=== PATIENT | female | born 1975 | race Caucasian/White ===

== ENCOUNTER 2020-04-09 12:19 | Emergency (ER) | payer OTHER ==
[2020-04-09] MEDS ORDERED: DIPHENHYDRAMINE 50 MG/ML VIAL ONE (12:57)
[2020-04-09] MEDS ORDERED: METHYLPREDNISOLONE 125 MG INJ ONE (12:57)
[2020-04-09] MEDS ORDERED: ONDANSETRON 4 MG/2 ML VIAL ONE (12:58)
[2020-04-09] MEDS ORDERED: MORPHINE 4 MG/ML SYR ONE ×2 (12:58→14:30)
[2020-04-09] MEDS ORDERED: NA CHLORIDE 0.9% 1,000 ML ONE ×2 (12:58→12:59)
--- OUTSIDE RECORDS SUMMARY | 2020-04-09 13:06 | XMS REPORT | Clinical Summary ---
:1975 Author Organization [facility] Address [address] [place] [id number] Care Team Providers Name Role Phone Asked, No Pcp Primary Care Provider Unavailable Allergies Active Allergy Reactions Severity Noted Date Comments Adalimumab 11/22/2017 Infliximab 11/22/2017 Ketorolac 11/22/2017 Medications Medication Sig Dispensed Refills Start Date End Date Status UNABLE TO FIND Med Name: callie Green 0 Active daily Active Problems Not on file Social History Tobacco Use Types Packs/Day Years Used Date Never Smoker Smokeless Tobacco: Never Used Sex Assigned at Date Recorded Not on file Job Start Date Occupation Industry Not on file Not on file Not on file Travel History Travel Start Travel End No recent travel history available. 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
[2020-04-09 13:16] LABS: Basophils % 1.2 % (0-1.3); Lymphocytes % 23.7 % (15.3-44.8); MPV 6.9 fL (7.6-11.3); RBC Red Blood Cell Count 4.59 M/uL (3.86-4.86)
[2020-04-09 13:25] LABS: ALT/SGPT 24 U/L (12-78); AST/SGOT 21 U/L (15-37); Albumin 3.8 g/dL (3.4-5.0); Alkaline Phosphatase 87 U/L (45-117); BUN Blood Urea Nitrogen 12 mg/dL (7-18); Bicarbonate 31 mmol/L (21-32); Bilirubin Direct < 0.1 mg/dL (0-0.2); Bilirubin Total 0.2 mg/dL (0.2-1.0); Glucose Level 90 mg/dL (74-106); Lipase 144 U/L (73-393); Protein, Total 7.9 g/dL (6.4-8.2); Sodium Level 140 mmol/L (136-145)
--- NOTE | 2020-04-09 14:23 | EDPHYS ---
Physician Documentation [facility] Name: Marisela Benedict Age: 44 yrs Sex: Female : 1975 Arrival Date: 04/09/2020 Time: 12:20 Bed 14 Private MD: ED Physician Corey Velasco HPI: 04/09 17:18 This 44 yrs old Female presents to ER via Ambulatory with complaints of kdr Abdominal Pain. 17:18 The patient presents with abdominal pain in the lower abdomen. Onset: The kdr symptoms/episode began/occurred gradually, 3 day(s) ago. The symptoms do not radiate. Associated signs and symptoms: Pertinent positives: diarrhea, nausea, Pertinent negatives: palpitations, shortness of breath, vaginal discharge, vomiting, vomiting blood. The symptoms are described as achy, crampy, dull, vague, waxing/waning. Modifying factors: The symptoms are alleviated by nothing, the symptoms are aggravated by pressure, touching the area. Severity of pain: At its worst the pain was mild moderate in the emergency department the pain is unchanged. The patient has experienced similar episodes in the past, a few times. The patient has not recently seen a physician. 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 - Social history:: Smoking status: Patient denies any tobacco usage or history of. ROS: 17:18 Constitutional: Negative for fever, chills, and weight loss, Eyes: Negative for injury, kdr pain, redness, and discharge, ENT: Negative for injury, pain, and discharge, Neck: Negative for injury, pain, and swelling, Cardiovascular: Negative for chest pain, palpitations, and edema, Respiratory: Negative for shortness of breath, cough, wheezing, and pleuritic chest pain, Back: Negative for injury and pain, : Negative for injury, bleeding, discharge, and swelling, MS/Extremity: Negative for injury and deformity, Skin: Negative for injury, rash, and discoloration, Neuro: Negative for headache, weakness, numbness, tingling, and seizure activity. Psych: Negative for depression, anxiety, suicide ideation, homicidal ideation, and hallucinations, Allergy/Immunology: Negative for hives, rash, and allergies, Endocrine: Negative for neck swelling, polydipsia, polyuria, polyphagia, and marked weight changes, Hematologic/Lymphatic: Negative for swollen nodes, abnormal bleeding, and unusual bruising. 17:18 Abdomen/GI: Positive for abdominal pain, nausea, diarrhea, Negative for vomiting, constipation, abdominal distension, anorexia, dysphagia, hematemesis, black/tarry stool, rectal pain, rectal bleeding, bowel incontinence. Exam: 17:18 Constitutional: This is a well developed, well nourished patient who is awake, alert, kdr and in no acute distress. Head/Face: Normocephalic, atraumatic. Eyes: Pupils equal round and reactive to light, extra-ocular motions intact. Lids and lashes normal. Conjunctiva and sclera are non-icteric and not injected. Cornea within normal limits. Periorbital areas with no swelling, redness, or edema. Neck: Trachea midline, no thyromegaly or masses palpated, and no cervical lymphadenopathy. Supple, full range of motion without nuchal rigidity, or vertebral point tenderness. No Meningismus. Chest/axilla: Normal chest wall appearance and motion. Nontender with no deformity. No lesions are appreciated. Cardiovascular: Regular rate and rhythm with a normal S1 and S2. No gallops, murmurs, or rubs. Normal PMI, no JVD. No pulse deficits. Respiratory: Lungs have equal breath sounds bilaterally, clear to auscultation and percussion. No rales, rhonchi or wheezes noted. No increased work of breathing, no retractions or nasal flaring. Back: No spinal tenderness. No costovertebral tenderness. Full range of motion. Skin: Warm, dry with normal turgor. Normal color with no rashes, no lesions, and no evidence of cellulitis. MS/ Extremity: Pulses equal, no cyanosis. Neurovascular intact. Full, normal range of motion. Neuro: Awake and alert, GCS 15, oriented to person, place, time, and situation. Cranial nerves II-XII grossly intact. Motor strength 5/5 in all extremities. Sensory grossly intact. Cerebellar exam normal. Normal gait. Psych: Awake, alert, with orientation to person, place and time. Behavior, mood, and affect are within normal limits. 17:18 Abdomen/GI: Inspection: abdomen appears normal, Bowel sounds: active, diminished, in all quadrants, Palpation: soft, mild abdominal tenderness, in the suprapubic area, right lower quadrant and left lower quadrant. Vital Signs: 12:37 BP 129 / 83; Pulse 121; Resp 18 S; Temp 98.4(TE); Pulse Ox 100% on R/A; Weight 54.43 kg ca1 (R); Height 5 ft. 7 in. (170.18 cm) (R); Pain 9/10; 13:00 BP 111 / 91; Pulse 120; Resp 20; Pulse Ox 100% on R/A; jr10 14:00 BP 155 / 99; Pulse 102; Resp 20; Pulse Ox 100% ; jr10 14:30 BP 145 / 95; Pulse 101; Resp 20; Pulse Ox 100% ; jr10 12:37 Body Mass Index 18.79 (54.43 kg, 170.18 cm) ca1 MDM: 14:22 Patient medically screened. kdr 17:18 Data reviewed: vital signs, nurses notes, lab test result(s), radiologic studies. kdr Counseling: I had a detailed discussion with the patient and/or guardian regarding: the historical points, exam findings, and any diagnostic results supporting the discharge/admit diagnosis, lab results, radiology results, the need for outpatient follow up. 04/09 12:28 Order name: Basic Metabolic Panel; Complete Time: 14:17 kdr 04/09 12:28 Order name: CBC with Diff; Complete Time: 14:17 kdr 04/09 12:28 Order name: Hepatic Function; Complete Time: 14:17 [facility] 04/09 12:28 Order name: Lipase; Complete Time: 14:17 [facility] 04/09 12:28 Order name: IV Saline Lock; Complete Time: 13:05 [facility] 04/09 12:28 Order name: Labs collected and sent; Complete Time: 13:05 kdr Administered Medications: 13:00 Drug: NS 0.9% 1000 ml Route: IV; Rate: 1 bolus; Site: left forearm; ca1 14:00 Follow up: Response: No adverse reaction; IV Status: Completed infusion jr10 13:01 Drug: Zofran (Ondansetron) 4 mg Route: IVP; Site: left forearm; ca1 14:33 Follow up: Response: No adverse reaction jr10 13:03 Drug: morphine 4 mg {Note: rass 0.} Route: IVP; Site: left forearm; ca1 14:32 Follow up: Response: No adverse reaction; Pain is decreased jr10 13:05 Drug: SOLU-Medrol 125 mg Route: IVP; Site: left forearm; ca1 14:32 Follow up: Response: No adverse reaction jr10 13:07 Drug: Benadryl 50 mg Route: IVP; Site: left forearm; ca1 14:32 Follow up: Response: No adverse reaction jr10 14:00 Drug: NS 0.9% 1000 ml {Note: left posterior.} Route: IV; Rate: 125 ml/hr; Site: left jr10 forearm; 14:38 Drug: morphine 4 mg Route: IVP; Site: left forearm; jr10 15:08 Follow up: Response: No adverse reaction; Pain is decreased jr10 14:38 Drug: [place] (7.5 mg-325 mg) 1 tabs Route: PO; jr10 15:08 Follow up: Response: No adverse reaction; Pain is decreased jr10 Disposition: 04/09/20 14:22 Discharged to Home. Impression: Abdominal and pelvic pain. - Condition is Stable. - Discharge Instructions: Abdominal Pain, Adult, [id number]. - Prescriptions for Bentyl 20 mg Oral Tablet - take 1 tablet by ORAL route every 6 hours As needed; 20 tablet. Cipro 500 mg Oral Tablet - take 1 tablet by ORAL route every 12 hours for 7 days; 14 tablet. Flagyl 500 mg Oral Tablet - take 1 tablet by ORAL route every 12 hours for 7 days; 14 tablet. Tylenol- Codeine #3 300-30 mg Oral Tablet - take 2 tablet by ORAL route every 6 hours As needed; 30 tablet. Zofran 4 mg Oral Tablet - take 1 tablet by ORAL route every 4-6 hours As needed; 12 tablet. Pepcid 20 mg Oral Tablet - take 1 tablet by ORAL route every 12 hours for 5 days; 10 tablet. Medrol (Felice) 4 mg Oral Tablets, Dose Pack - take 1 tablet by ORAL route as directed - follow package instructions; 1 packet. - Medication Reconciliation Form, Thank You Letter, Antibiotic Education, Prescription Opioid Use form. - Follow up: Private Physician; When: 2 - 3 days; Reason: If symptoms return, Further diagnostic work-up, Recheck today's complaints, Continuance of care, Re-evaluation by your physician. - Problem is an acute exacerbation. - Symptoms have improved. Signatures: Dispatcher [employer] EDMS Corey Velasco MD MD kdr Acob, Cheryl, RN RN [facility] Emmy Brooke RN RN jr10 Corrections: (The following items were deleted from the chart) 15:10 14:22 04/09/2020 14:22 Discharged to Home. Impression: Abdominal and pelvic pain. jr10 Condition is Stable. Forms are Medication Reconciliation Form, Thank You Letter, Antibiotic Education, Prescription Opioid Use. Follow up: Private Physician; When: 2 - 3 days; Reason: If symptoms return, Further diagnostic work-up, Recheck today's complaints, Continuance of care, Re-evaluation by your physician. Problem is an acute exacerbation. Symptoms have improved. kdr
--- NOTE | 2020-04-09 14:23 | ER ---
Nurse's Notes [facility] Name: Marisela Benedict Age: 44 yrs Sex: Female : 1975 Arrival Date: 04/09/2020 Time: 12:20 Bed 14 Private MD: Diagnosis: Abdominal and pelvic pain Presentation: 04/09 12:37 Chief complaint: Patient states: Crohn's flare up. Taking Desipramine 20 mg 2 tabs ca1 nightly. This is a new medication they put me on since about 2 weeks ago. But since last night, I have been having severe abdominal pain, tenderness and feeling bloated at the lower abdomen. Reports N/diarrhea. No vomiting. Coronavirus screen: Patient denies a cough. Patient denies shortness of breath or difficulty breathing. Patient denies measured and/or subjective temperature greater than 100.4F prior to today's visit. Patient denies travel on a cruise ship or to a country the [facility] currently lists as an affected area. Patient denies contact with known and/or suspected case of COVID-19. Proceed with normal triage. Ebola Screen: Patient negative for fever greater than or equal to 101.5 degrees Fahrenheit, and additional compatible Ebola Virus Disease symptoms Patient denies exposure to infectious person. Patient denies travel to an Ebola-affected area in the 21 days before illness onset. No symptoms or risks identified at this time. Initial Sepsis Screen: Does the patient meet any 2 criteria? No. Patient's initial sepsis screen is negative. Does the patient have a suspected source of infection? No. Patient's initial sepsis screen is negative. Risk Assessment: Do you want to hurt yourself or someone else? Patient reports no desire to harm self or others. Onset of symptoms was April 09, 2020. 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 - Social history:: Smoking status: Patient denies any tobacco usage or history of. Screenin:00 Abuse screen: Denies threats or abuse. Denies injuries from another. Nutritional jr10 screening: No deficits noted. Tuberculosis screening: No symptoms or risk factors identified. Fall Risk No fall in past 12 months (0 pts). No secondary diagnosis (0 pts). IV access (20 points). Ambulatory Aid- None/Bed Rest/Nurse Assist (0 pts). Gait- Normal/Bed Rest/Wheelchair (0 pts) Mental Status- Oriented to own ability (0 pts). Assessment: 13:00 General: Appears in no apparent distress. Behavior is calm, cooperative, appropriate jr10 for age. Pain: Complains of pain in right lower quadrant and left lower quadrant Pain does not radiate. Pain currently is 9 out of 10 on a pain scale. Quality of pain is described as burning, aching, Pain began this morning Is continuous, Alleviated by medications, Also complains of nausea, diarrhea. Neuro: No deficits noted. Cardiovascular: No deficits noted. Respiratory: No deficits noted. GI: Abdomen is distended, mildly Bowel sounds hyperactive in right upper quadrant, left upper quadrant, right lower quadrant and left lower quadrant Abd is soft Abdomen is tender to palpation in right lower quadrant and left lower quadrant Reports lower abdominal pain, diarrhea, bloody stool, nausea, hx of Crohn's dx. : No deficits noted. EENT: No deficits noted. Derm: Skin is intact, Skin is dry, Skin is pink, warm \T\ dry. Rash noted that is itchy, papular. Musculoskeletal: No deficits noted. Vital Signs: 12:37 BP 129 / 83; Pulse 121; Resp 18 S; Temp 98.4(TE); Pulse Ox 100% on R/A; Weight 54.43 kg ca1 (R); Height 5 ft. 7 in. (170.18 cm) (R); Pain 9/10; 13:00 BP 111 / 91; Pulse 120; Resp 20; Pulse Ox 100% on R/A; jr10 14:00 BP 155 / 99; Pulse 102; Resp 20; Pulse Ox 100% ; jr10 14:30 BP 145 / 95; Pulse 101; Resp 20; Pulse Ox 100% ; jr10 12:37 Body Mass Index 18.79 (54.43 kg, 170.18 cm) ca1 ED Course: 12:20 Patient arrived in ED. ag5 12:27 Corey Velasco MD is Attending Physician. kdr 12:39 Triage completed. ca1 12:41 Arm band placed on right wrist. ca1 13:00 Bed in low position. Call light in reach. Side rails up X2. Pulse ox on. NIBP on. jr10 13:00 Inserted saline lock: 20 gauge in left forearm, using aseptic technique. Blood dh4 collected. 13:04 Emmy Brooke RN is Primary Nurse. jr10 14:43 No provider procedures requiring assistance completed. jr10 15:09 IV discontinued, No redness/swelling at site. Pressure dressing applied. jr10 Administered Medications: 13:00 Drug: NS 0.9% 1000 ml Route: IV; Rate: 1 bolus; Site: left forearm; ca1 14:00 Follow up: Response: No adverse reaction; IV Status: Completed infusion jr10 13:01 Drug: Zofran (Ondansetron) 4 mg Route: IVP; Site: left forearm; ca1 14:33 Follow up: Response: No adverse reaction jr10 13:03 Drug: morphine 4 mg {Note: rass 0.} Route: IVP; Site: left forearm; ca1 14:32 Follow up: Response: No adverse reaction; Pain is decreased jr10 13:05 Drug: SOLU-Medrol 125 mg Route: IVP; Site: left forearm; ca1 14:32 Follow up: Response: No adverse reaction jr10 13:07 Drug: Benadryl 50 mg Route: IVP; Site: left forearm; ca1 14:32 Follow up: Response: No adverse reaction jr10 14:00 Drug: NS 0.9% 1000 ml {Note: left posterior.} Route: IV; Rate: 125 ml/hr; Site: left jr10 forearm; 14:38 Drug: morphine 4 mg Route: IVP; Site: left forearm; jr10 15:08 Follow up: Response: No adverse reaction; Pain is decreased jr10 14:38 Drug: [place] (7.5 mg-325 mg) 1 tabs Route: PO; jr10 15:08 Follow up: Response: No adverse reaction; Pain is decreased jr10 Outcome: 14:22 Discharge ordered by . kdr 15:09 Discharged to home ambulatory. jr10 15:09 Condition: improved 15:09 Discharge instructions given to patient, Instructed on discharge instructions, follow up and referral plans. Demonstrated understanding of instructions, follow-up care, medications, Prescriptions given X x7 15:10 Patient left the ED. jr10 Signatures: Corey Velasco MD MD [facility] Aaliyah Rae RN RN ca1 Donita Heredia ag5 Devyn Starks 4 Emmy Brooke RN RN jr10
[2020-04-09] MEDS ORDERED: HYDROCODONE/APAP 7.5/325 MG TAB ONE (14:30)
[2020-04-09 15:16] VITALS: TEMP 98.4; O2SAT 100
[2020-04-09 15:20] VITALS: BP 145/95
== END 2020-04-09 15:10 | disposition home or self-care (01) ==
LOC: ER 12:19
DX: R10.30 Lower abdominal pain, unspecified (principal); K50.90 Crohn's disease, unspecified, without complications; Z88.5 Allergy status to narcotic agent; Z88.8 Allergy status to other drugs, medicaments and biological substances
CPT/HCPCS: 85025; 80048; 36415; 80076; 83690; J1200; J7030 ×2; J2930; J2405

== ENCOUNTER 2020-04-14 12:14 | Emergency (ER) | payer OTHER ==
[2020-04-14 13:35] LABS: Absolute Lymphocytes (CBC) 2.3 K/uL (0.7-4.9); Basophils % 1.1 % (0-1.3); Hematocrit 42.2 % (36.0-45.0); Lymphocytes % 20.9 % (15.3-44.8); MPV 6.6 fL (7.6-11.3); RBC Red Blood Cell Count 4.59 M/uL (3.86-4.86)
[2020-04-14] MEDS ORDERED: NA CHLORIDE 0.9% 1,000 ML ONE (13:50)
[2020-04-14 13:51] LABS: ALT/SGPT 39 U/L (12-78); AST/SGOT 26 U/L (15-37); Albumin 3.7 g/dL (3.4-5.0); Alkaline Phosphatase 89 U/L (45-117); BUN Blood Urea Nitrogen 15 mg/dL (7-18); Bicarbonate 28 mmol/L (21-32); Bilirubin Direct < 0.1 mg/dL (0-0.2); Bilirubin Total 0.3 mg/dL (0.2-1.0); Glucose Level 107 mg/dL (74-106); Lipase 95 U/L (73-393); Potassium 4.3 mmol/L (3.5-5.1); Protein, Total 8.1 g/dL (6.4-8.2); Sodium Level 139 mmol/L (136-145)
--- OUTSIDE RECORDS SUMMARY | 2020-04-14 14:01 | XMS REPORT | Clinical Summary ---
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
[2020-04-14] MEDS ORDERED: FENTANYL CITR 100 MCG/2 ML ONE (14:33)
[2020-04-14] MEDS ORDERED: dexAMETHasone 10 MG/ML VIAL ONE (14:33)
[2020-04-14] MEDS ORDERED: DIPHENHYDRAMINE 50 MG/ML VIAL ONE (14:37)
[2020-04-14] MEDS ORDERED: HYDROMORPHONE HCL 1 MG/ML INJ ONE ×2 (14:38→15:56)
--- NOTE | 2020-04-14 15:44 | ER ---
Nurse's Notes [facility] Name: Marisela Benedict Age: 44 yrs Sex: Female : 1975 Arrival Date: 04/14/2020 Time: 12:15 Bed 19 Private MD: Diagnosis: Crohn's disease [regional enteritis];Rash and other nonspecific skin eruption Presentation: 04/14 12:26 Chief complaint: Patient states: Flare up of Crohn's since yesterday. Severe abdominal ca1 pain, Nausea, diarrhea and bloody stool. Was here Tuesday for the same thing. Will Have a GI visit on . Coronavirus screen: Client denies travel out of the [place] in the last 14 days. Coronavirus screen: At this time, the client does not indicate any symptoms associated with coronavirus-19. Ebola Screen: Patient negative for fever greater than or equal to 101.5 degrees Fahrenheit, and additional compatible Ebola Virus Disease symptoms Patient denies exposure to infectious person. Patient denies travel to an Ebola-affected area in the 21 days before illness onset. No symptoms or risks identified at this time. Initial Sepsis Screen: Does the patient meet any 2 criteria? No. Patient's initial sepsis screen is negative. Does the patient have a suspected source of infection? No. Patient's initial sepsis screen is negative. Risk Assessment: Do you want to hurt yourself or someone else? Patient reports no desire to harm self or others. Onset of symptoms was April 14, 2020. 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 - Social history:: Smoking status: Patient denies any tobacco usage or history of. Screenin:00 Abuse screen: Denies threats or abuse. Denies injuries from another. Nutritional jr10 screening: No deficits noted. Tuberculosis screening: No symptoms or risk factors identified. Fall Risk IV access (20 points). Assessment: 13:00 General: Appears uncomfortable, Behavior is calm, cooperative, appropriate for age. jr10 Pain: Complains of pain in abdomen Pain does not radiate. Pain currently is 9 out of 10 on a pain scale. Is continuous. Neuro: No deficits noted. Cardiovascular: No deficits noted. Respiratory: No deficits noted. GI: Abdomen is non-distended, Bowel sounds present X 4 quads. Abd is soft Abdomen is tender to palpation X 4 quads. Reports diarrhea, bloody stool, pt with hx of Crohns, was seen here last week for the same s/s, reports running out of Rx medication and will be returning home to [place] tomorrow. Has a follow up with her GI doctor on . : No deficits noted. EENT: No deficits noted. Derm: Rash noted that is itchy, papular, red. 13:00 Musculoskeletal: No deficits noted. jr10 Vital Signs: 12:26 BP 143 / 86; Pulse 114; Resp 18 S; Temp 98.3(O); Pulse Ox 100% on R/A; Weight 57.15 kg ca1 (R); Height 5 ft. 7 in. (170.18 cm) (R); Pain 9/10; 13:24 BP 137 / 92; Pulse 104; Resp 20; Pulse Ox 100% on R/A; Pain 9/10; jr10 14:15 BP 129 / 92; Pulse 98; Resp 20; Pulse Ox 100% on R/A; Pain 9/10; jr10 16:00 BP 126 / 88; Pulse 95; Resp 16; Pulse Ox 99% ; sv 12:26 Body Mass Index 19.73 (57.15 kg, 170.18 cm) ca1 ED Course: 12:15 Patient arrived in ED. ag5 12:27 Triage completed. ca1 12:28 Arm band placed on right wrist. ca1 12:29 Mayi Foote FNP-C is PHCP. snw 12:29 Giacomo Cobb MD is Attending Physician. snw 12:54 Emmy Brooke, BENJY is Primary Nurse. jr10 13:00 Patient has correct armband on for positive identification. Bed in low position. Call jr10 light in reach. Side rails up X2. Pulse ox on. NIBP on. 13:30 Inserted saline lock: 22 gauge in left forearm, using aseptic technique. IV is patent, jr10 is intact, with good blood return, Flushed. 16:00 No provider procedures requiring assistance completed. IV discontinued, intact, sv bleeding controlled, No redness/swelling at site. Pressure dressing applied. Administered Medications: 13:42 Drug: NS 0.9% (20 ml/kg) 20 ml/kg Route: IV; Rate: 1 bolus; Site: left forearm; jr10 14:28 CANCELLED (Other Intervention Used): fentaNYL (PF) 50 mcg IVP once; RASS on ADMIN: snw Combtv4, Very Agttd3, Agttd2, Rstlss1, AlertClm0, Drwsy-1, Lt Sdtn-2, Mod Sdtn-3, Dp Sdtn-4, UnArsble-5 14:42 Drug: Decadron - Dexamethasone 10 mg Route: IVP; Site: left forearm; jr10 15:50 Follow up: Response: No adverse reaction sv 14:45 Drug: Benadryl 50 mg Route: IVP; Site: left forearm; jr10 15:50 Follow up: Response: No adverse reaction sv 14:46 Drug: Dilaudid 1 mg Route: IVP; Site: left forearm; jr10 15:50 Follow up: Response: No adverse reaction; No change in condition; RASS: Alert and Calm sv (0) 15:51 Drug: Dilaudid 1 mg {Note: RASS1.} Route: IVP; Site: left forearm; sv 16:01 Follow up: Response: No adverse reaction; RASS: Alert and Calm (0) sv Outcome: 15:43 Discharge ordered by MD. gardiner 16:00 Discharged to home ambulatory, Pt stated that her spouse is driving her home. sv 16:00 Condition: stable 16:00 Discharge instructions given to patient, Instructed on discharge instructions, follow up and referral plans. medication usage, Demonstrated understanding of instructions, follow-up care, medications, Prescriptions given X 2. 16:01 Patient left the ED. sv Signatures: Cady Fischer RN RN sv Waters, Shelly, COMBATANT DIVER QUALIFIED-C COMBATANT DIVER QUALIFIED-Csnw Aaliyah Rae RN RN [facility] Donita Heredia [facility] Brooke, Emmy, RN RN jr10
--- NOTE | 2020-04-14 15:44 | EDPHYS ---
Physician Documentation [facility] Name: Marisela Benedict Age: 44 yrs Sex: Female : 1975 Arrival Date: 04/14/2020 Time: 12:15 Bed 19 Private MD: ED Physician Giacomo Cobb HPI: 04/14 15:00 This 44 yrs old Female presents to ER via Ambulatory with complaints of snw Abdominal Pain. 15:00 The patient presents with abdominal pain. Onset: The symptoms/episode began/occurred snw suddenly, 1 week(s) ago, and became persistent. The symptoms do not radiate. Associated signs and symptoms: Pertinent positives: diarrhea, GI bleeding. The symptoms are described as constant, crampy. Severity of pain: At its worst the pain was moderate severe. The patient has experienced similar episodes in the past, multiple times, chronically. The patient has been recently seen at the [facility] Emergency Department, this week, for similar complaints. Pt called her GI specialist, told pt to return to ED and get the same medications and she could be seen on when she returns to her hometown.. 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 - Social history:: Smoking status: Patient denies any tobacco usage or history of. ROS: 14:59 Constitutional: Negative for fever, chills, and weight loss, Eyes: Negative for injury, snw pain, redness, and discharge, ENT: Negative for injury, pain, and discharge, Neck: Negative for injury, pain, and swelling, Cardiovascular: Negative for chest pain, palpitations, and edema, Respiratory: Negative for shortness of breath, cough, wheezing, and pleuritic chest pain, Back: Negative for injury and pain, : Negative for injury, bleeding, discharge, and swelling, MS/Extremity: Negative for injury and deformity, Skin: Negative for injury, rash, and discoloration, Neuro: Negative for headache, weakness, numbness, tingling, and seizure, Psych: Negative for depression, anxiety, suicide ideation, homicidal ideation, and hallucinations. 14:59 Abdomen/GI: Positive for abdominal pain, diarrhea, abdominal cramps, abdominal distension, rectal bleeding. Exam: 14:58 Constitutional: This is a well developed, well nourished patient who is awake, alert, snw and in no acute distress. Head/Face: Normocephalic, atraumatic. Eyes: Pupils equal round and reactive to light, extra-ocular motions intact. Lids and lashes normal. Conjunctiva and sclera are non-icteric and not injected. Cornea within normal limits. Periorbital areas with no swelling, redness, or edema. ENT: Nares patent. No nasal discharge, no septal abnormalities noted. Tympanic membranes are normal and external auditory canals are clear. Oropharynx with no redness, swelling, or masses, exudates, or evidence of obstruction, uvula midline. Mucous membranes moist. Neck: Trachea midline, no thyromegaly or masses palpated, and no cervical lymphadenopathy. Supple, full range of motion without nuchal rigidity, or vertebral point tenderness. No Meningismus. Chest/axilla: Normal chest wall appearance and motion. Nontender with no deformity. No lesions are appreciated. Cardiovascular: Regular rate and rhythm with a normal S1 and S2. No gallops, murmurs, or rubs. Normal PMI, no JVD. No pulse deficits. Respiratory: Lungs have equal breath sounds bilaterally, clear to auscultation and percussion. No rales, rhonchi or wheezes noted. No increased work of breathing, no retractions or nasal flaring. Back: No spinal tenderness. No costovertebral tenderness. Full range of motion. MS/ Extremity: Pulses equal, no cyanosis. Neurovascular intact. Full, normal range of motion. Neuro: Awake and alert, GCS 15, oriented to person, place, time, and situation. Cranial nerves II-XII grossly intact. Motor strength 5/5 in all extremities. Sensory grossly intact. Cerebellar exam normal. Normal gait. Psych: Awake, alert, with orientation to person, place and time. Behavior, mood, and affect are within normal limits. 14:58 Abdomen/GI: Inspection: distension, that is moderate, Bowel sounds: normal, Palpation: mild abdominal tenderness, in all quadrants. 14:58 Skin: Appearance: Color: erythematous, Temperature: warm, Moisture: dry, excoriate rash to flexor areas. Vital Signs: 12:26 BP 143 / 86; Pulse 114; Resp 18 S; Temp 98.3(O); Pulse Ox 100% on R/A; Weight 57.15 kg ca1 (R); Height 5 ft. 7 in. (170.18 cm) (R); Pain 9/10; 13:24 BP 137 / 92; Pulse 104; Resp 20; Pulse Ox 100% on R/A; Pain 9/10; jr10 14:15 BP 129 / 92; Pulse 98; Resp 20; Pulse Ox 100% on R/A; Pain 9/10; jr10 16:00 BP 126 / 88; Pulse 95; Resp 16; Pulse Ox 99% ; sv 12:26 Body Mass Index 19.73 (57.15 kg, 170.18 cm) ca1 MDM: 12:30 Patient medically screened. [facility] 15:47 Data reviewed: vital signs, nurses notes. Data interpreted: Pulse oximetry: on room air snw is 100 %. Interpretation: normal. Counseling: I had a detailed discussion with the patient and/or guardian regarding: the historical points, exam findings, and any diagnostic results supporting the discharge/admit diagnosis, the need for outpatient follow up, to return to the emergency department if symptoms worsen or persist or if there are any questions or concerns that arise at home. Response to treatment: the patient's symptoms have mildly improved after treatment, pain down to 6/10, pt states if she could just get to a 2/10, that is what she lives with everyday. 04/14 12:47 Order name: Basic Metabolic Panel; Complete Time: 13:52 snw 04/14 12:47 Order name: CBC with Diff; Complete Time: 13:51 snw 04/14 12:47 Order name: Hepatic Function; Complete Time: 13:52 snw 04/14 12:47 Order name: Lipase; Complete Time: 13:52 snw 04/14 12:47 Order name: IV Saline Lock; Complete Time: 13:28 snw 04/14 15:47 Order name: Urine Dipstick--Ancillary (enter results) bd 04/14 12:47 Order name: Labs collected and sent; Complete Time: 13:28 snw 04/14 12:47 Order name: Urine Dipstick-Ancillary (obtain specimen); Complete Time: 16:02 snw Administered Medications: 13:42 Drug: NS 0.9% (20 ml/kg) 20 ml/kg Route: IV; Rate: 1 bolus; Site: left forearm; jr10 14:28 CANCELLED (Other Intervention Used): fentaNYL (PF) 50 mcg IVP once; RASS on ADMIN: snw Combtv4, Very Agttd3, Agttd2, Rstlss1, AlertClm0, Drwsy-1, Lt Sdtn-2, Mod Sdtn-3, Dp Sdtn-4, UnArsble-5 14:42 Drug: Decadron - Dexamethasone 10 mg Route: IVP; Site: left forearm; jr10 15:50 Follow up: Response: No adverse reaction sv 14:45 Drug: Benadryl 50 mg Route: IVP; Site: left forearm; jr10 15:50 Follow up: Response: No adverse reaction sv 14:46 Drug: Dilaudid 1 mg Route: IVP; Site: left forearm; jr10 15:50 Follow up: Response: No adverse reaction; No change in condition; RASS: Alert and Calm sv (0) 15:51 Drug: Dilaudid 1 mg {Note: RASS1.} Route: IVP; Site: left forearm; sv 16:01 Follow up: Response: No adverse reaction; RASS: Alert and Calm (0) sv Disposition: 17:44 Co-signature as Attending Physician, Giacomo Cobb MD I agree with the assessment and karey plan of care. Disposition: 04/14/20 15:43 Discharged to Home. Impression: Crohn's disease [regional enteritis], Rash and other nonspecific skin eruption. - Condition is Stable. - Discharge Instructions: Crohn Disease, Rash. - Prescriptions for Prednisone 20 mg Oral Tablet - take 2 tablet by ORAL route once daily for 5 days; 10 tablet. promethazine 25 mg Oral Tablet - take 1 tablet by ORAL route every 6 hours As needed; 20 tablet. - Medication Reconciliation Form, Thank You Letter, Antibiotic Education, Prescription Opioid Use form. - Follow up: Emergency Department; When: As needed; Reason: Worsening of condition. Follow up: Private Physician; When: 2 - 3 days; Reason: Recheck today's complaints, Continuance of care, Re-evaluation by your physician. Signatures: Dispatcher [employer] Cady Serra, Giacomo Gordon RN, MD MD cha Waters, Shelly, BROWN STOCK WASHER-C BROWN STOCK WASHER-Csnw Aaliyah Rae RN RN ca1 Emmy Brooke RN RN jr10 Corrections: (The following items were deleted from the chart) 13:28 12:47 Urine Test ordered. snw jr10 14:28 14:11 fentaNYL (PF) 50 mcg IVP once; RASS on ADMIN: Combtv4, Very Agttd3, Agttd2, snw Rstlss1, AlertClm0, Drwsy-1, Lt Sdtn-2, Mod Sdtn-3, Dp Sdtn-4, UnArsble-5 ordered. snw 14:28 14:27 fentaNYL (PF) 50 mcg IVP once; RASS on ADMIN: Combtv4, Very Agttd3, Agttd2, snw Rstlss1, AlertClm0, Drwsy-1, Lt Sdtn-2, Mod Sdtn-3, Dp Sdtn-4, UnArsble-5 ordered. snw 16:01 15:43 04/14/2020 15:43 Discharged to Home. Impression: Crohn's disease [regional sv enteritis]; Rash and other nonspecific skin eruption. Condition is Stable. Forms are Medication Reconciliation Form, Thank You Letter, Antibiotic Education, Prescription Opioid Use. Follow up: Emergency Department; When: As needed; Reason: Worsening of condition. Follow up: Private Physician; When: 2 - 3 days; Reason: Recheck today's complaints, Continuance of care, Re-evaluation by your physician. snw
[2020-04-14 16:10] LABS: Urine Blood NEGATIVE (NEG); Urine Glucose NEGATIVE (NEG); Urine Protein NEGATIVE (NEG)
[2020-04-14 16:14] VITALS: TEMP 98.3
[2020-04-14 16:18] VITALS: BP 126/88; O2SAT 99
== END 2020-04-14 16:01 | disposition home or self-care (01) ==
LOC: ER 12:14
DX: K50.90 Crohn's disease, unspecified, without complications (principal); R21 Rash and other nonspecific skin eruption; Z88.5 Allergy status to narcotic agent; Z88.8 Allergy status to other drugs, medicaments and biological substances
CPT/HCPCS: 85025; 80048; 36415; 80076; 81003; 83690; J1200; J3010; J1100; J1170 ×2; J7030; 96374; 96375; 99284

== ENCOUNTER 2022-03-17 22:57 | Emergency (ER) | payer OTHER ==
[2022-03-17] MEDS ORDERED: DIPHENHYDRAMINE 50 MG/ML VIAL ONE (23:42)
[2022-03-17] MEDS ORDERED: METHYLPREDNISOLONE 125 MG INJ ONE (23:42)
[2022-03-17] MEDS ORDERED: MORPHINE 4 MG/ML SYR ONE (23:43)
[2022-03-17] MEDS ORDERED: ONDANSETRON 4 MG/2 ML VIAL ONE (23:43)
[2022-03-17] MEDS ORDERED: NA CHLORIDE 0.9% 1,000 ML ONE (23:43)
[2022-03-18 00:02] LABS: Absolute Lymphocytes (CBC) 4.2 K/uL (0.7-4.9); Hematocrit 39.7 % (36.0-45.0); Lymphocytes % 27.6 % (15.3-44.8); MCV 88.9 fL (80-100); MPV 6.7 fL (7.6-11.3); RBC Red Blood Cell Count 4.47 M/uL (3.86-4.86)
[2022-03-18 00:25] LABS: Albumin 3.6 g/dL (3.4-5.0); Bilirubin Total 0.1 mg/dL (0.2-1.0); Potassium 3.4 mmol/L (3.5-5.1); Protein, Total 7.3 g/dL (6.4-8.2)
[2022-03-18] MEDS ORDERED: MORPHINE 4 MG/ML SYR ONE ×2 (00:46→03:21)
[2022-03-18] MEDS ORDERED: DIPHENHYDRAMINE 50 MG/ML VIAL ONE (00:46)
--- NOTE | 2022-03-18 03:10 | EDPHYS ---
Physician Documentation [facility] Name: Marisela Benedict Age: 46 yrs Sex: Female : 1975 Arrival Date: 03/17/2022 Time: 23:01 Bed 18 Private MD: ED Physician Cachorro Hanks HPI: 03/17 23:20 This 46 yrs old Female presents to ER via Ambulatory with complaints of abdominal pain, rn crohn's flare. 23:20 The patient presents with abdominal pain that is diffuse. Onset: The symptoms/episode rn began/occurred 4 day(s) ago. The symptoms do not radiate. Associated signs and symptoms: Pertinent positives: nausea and vomiting, blood in stools, diarrhea. The symptoms are described as achy, crampy. Modifying factors: The symptoms are alleviated by nothing, the symptoms are aggravated by touching the area. Severity of pain: At its worst the pain was moderate in the emergency department the pain is unchanged. The patient has experienced similar episodes in the past, and the symptoms today are exactly the same. The patient has not recently seen a physician. Pt reports feels identical to previous crohn's flares, diffuse abd pain, is from out of town, nausea/vomiting/diarrhea. . 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 - Social history:: Smoking status: Patient denies any tobacco usage or history of. Patient/guardian denies using alcohol. - Family history:: not pertinent. - Hospitalizations: : No recent hospitalization is reported. ROS: 23:20 Constitutional: Negative for fever, chills, and weight loss, Eyes: Negative for injury, rn pain, redness, and discharge, Neck: Negative for injury, pain, and swelling, Cardiovascular: Negative for chest pain, palpitations, and edema, Respiratory: Negative for shortness of breath, cough, wheezing, and pleuritic chest pain, Abdomen/GI: + abd pain/nausea/vomiting/diarrhea Back: Negative for injury and pain, : Negative for injury, bleeding, discharge, and swelling, MS/Extremity: Negative for injury and deformity, Skin: Negative for injury, rash, and discoloration, Neuro: Negative for headache, weakness, numbness, tingling, and seizure. Exam: 23:20 Constitutional: This is a well developed, well nourished patient who is awake, alert, rn and in no acute distress. Head/Face: Normocephalic, atraumatic. Cardiovascular: Regular rate and rhythm. No pulse deficits. Respiratory: No increased work of breathing, no retractions or nasal flaring. Abdomen/GI: soft, + mild tenderness lower abdomen, no masses, no peritoneal signs Skin: Warm, dry MS/ Extremity: Pulses equal, no cyanosis. Neuro: Awake and alert, GCS 15 Vital Signs: 23:11 BP 153 / 96; Pulse 99; Resp 18; Temp 97.2(TE); Pulse Ox 99% on R/A; Weight 61.69 kg; ld1 Height 5 ft. 7 in. (170.18 cm); Pain 9/10; 23:51 BP 146 / 86; Pulse 84; Resp 18; Pulse Ox 100% on R/A; ld1 03/18 00:47 BP 150 / 96; Pulse 102; Resp 18; Pulse Ox 100% on R/A; ll3 02:07 BP 157 / 97; Pulse 91; Resp 17; Pulse Ox 96% on R/A; ll3 03/17 23:11 Body Mass Index 21.30 (61.69 kg, 170.18 cm) ld1 MDM: 03/17 23:03 Patient medically screened. rn 03/18 03:09 Differential diagnosis: diverticulitis, gastritis, non-specific abd pain, pancreatitis, rn crohn's flare. Data reviewed: vital signs, nurses notes, lab test result(s), radiologic studies, CT scan, and as a result, I will discharge patient. Counseling: I had a detailed discussion with the patient and/or guardian regarding: the historical points, exam findings, and any diagnostic results supporting the discharge/admit diagnosis, lab results, radiology results, the need for outpatient follow up, to return to the emergency department if symptoms worsen or persist or if there are any questions or concerns that arise at home. Response to treatment: the patient's symptoms have markedly improved after treatment, and as a result, I will discharge patient. ED course: ct without acute findings, will dc home as crohn's flare. 03/17 23:03 Order name: CBC with Diff; Complete Time: 00:28 rn 03/17 23:03 Order name: CMP; Complete Time: 00:28 rn 03/17 23:03 Order name: Lipase; Complete Time: 00:28 rn 03/18 00:29 Order name: CT Abd/Pelvis - IV Contrast Only rn 03/17 23:03 Order name: IV Saline Lock; Complete Time: 23:23 rn 03/17 23:03 Order name: Labs collected and sent; Complete Time: 23:23 rn Administered Medications: 03/17 23:48 Drug: morphine 4 mg Route: IVP; Infused Over: 4 mins; Site: left forearm; ld1 03/18 03:24 Follow up: Response: No adverse reaction ll3 03/17 23:48 Drug: Zofran (Ondansetron) 4 mg Route: IVP; Site: left forearm; ld1 03/18 03:23 Follow up: Response: No adverse reaction ll3 03/17 23:48 Drug: SOLU-Medrol (methylPrednisoLONE) 125 mg Route: IVP; Site: left forearm; ld1 03/18 03:23 Follow up: Response: No adverse reaction ll3 03/17 23:48 Drug: NS 0.9% 1000 ml Route: IV; Rate: 1000 ml; Site: left forearm; ld1 03/18 03:23 Follow up: Response: No adverse reaction; IV Status: Completed infusion; IV Intake: ll3 1000ml 03/17 23:48 Drug: Benadryl (diphenhydrAMINE) 25 mg Route: IVP; Site: left forearm; ld1 03/18 03:23 Follow up: Response: No adverse reaction ll3 00:47 Drug: morphine 4 mg Route: IVP; Infused Over: 4 mins; Site: left antecubital; ll3 03:23 Follow up: Response: No adverse reaction ll3 00:47 Drug: Benadryl (diphenhydrAMINE) 25 mg Route: IVP; Site: left antecubital; ll3 03:23 Follow up: Response: No adverse reaction ll3 03:19 Drug: morphine 4 mg Route: IVP; Infused Over: 4 mins; Site: left forearm; ll3 03:24 Follow up: Response: No adverse reaction; Medication administered at discharge. ll3 Disposition Summary: 03/18/22 03:10 Discharge Ordered Location: Home rn Problem: an acute exacerbation rn Symptoms: have improved rn Condition: Stable rn Diagnosis - Crohn's disease, unspecified, without complications rn Followup: rn - With: Private Physician - When: As needed - Reason: Recheck today's complaints, Re-evaluation by your physician Discharge Instructions: - Discharge Summary Sheet rn - Crohn's Disease rn Forms: - Medication Reconciliation Form rn - Thank You Letter rn - Antibiotic regulatory affairs internship - Prescription Opioid Use rn Prescriptions: - ondansetron 4 mg Oral tablet,disintegrating - place 1 tablet by TRANSLINGUAL route every 8 hours As needed; 15 tablet; rn Refills: 0, Product Selection Permitted - Tramadol 50 mg Oral Tablet - take 1 tablet by ORAL route every 8 hours as needed; 12 tablet; Refills: 0, rn Product Selection Permitted - Medrol (Felice) 4 mg Oral Tablets, Dose Pack - take 1 tablet by ORAL route as directed - follow package instructions; 1 rn packet; Refills: 0, Product Selection Permitted Signatures: Dispatcher [employer] EDCachorro Pickard MD MD rn Dibbern, Lauren, RN RN ld1 tSoney Jackson RN RN ll3 Corrections: (The following items were deleted from the chart) 03/17 23:19 23:03 Urine Dipstick-Ancillary ordered. rn rn 23:19 23:03 Urine Test ordered. rn rn
--- NOTE | 2022-03-18 03:10 | ER ---
Nurse's Notes [facility] Name: Marisela Benedict Age: 46 yrs Sex: Female : 1975 Arrival Date: 03/17/2022 Time: 23:01 Bed 18 Private MD: Diagnosis: Crohn's disease, unspecified, without complications Presentation: 03/17 23:11 Chief complaint: Patient states: Bindu's flare up - severe abdominal cramping, ld1 diarrhea, nausea X 3 days. Coronavirus screen: At this time, the client does not indicate any symptoms associated with coronavirus-19. Ebola Screen: No symptoms or risks identified at this time. Initial Sepsis Screen: Does the patient meet any 2 criteria? No. Patient's initial sepsis screen is negative. Does the patient have a suspected source of infection? No. Patient's initial sepsis screen is negative. Risk Assessment: Do you want to hurt yourself or someone else? Patient reports no desire to harm self or others. Onset of symptoms was March 17, 2022. 23:11 Method Of Arrival: Ambulatory ld1 23:11 Acuity: VANNA 3 ld1 Triage Assessment: 23:12 General: Appears in no apparent distress. comfortable, Behavior is calm, cooperative, ld1 appropriate for age. Pain: Complains of pain in abdomen Pain does not radiate. Pain at worst was 9 out of 10 on a pain scale. EENT: No signs and/or symptoms were reported regarding the EENT system. Neuro: Level of Consciousness is awake, alert, obeys commands, Oriented to person, place, time, situation. Cardiovascular: Capillary refill < 3 seconds Patient's skin is warm and dry. Respiratory: Airway is patent Respiratory effort is even, unlabored. GI: Abdomen is round non-distended. GI: Reports cramping, diarrhea, nausea. : No signs and/or symptoms were reported regarding the genitourinary system. Derm: No signs and/or symptoms reported regarding the dermatologic system. Musculoskeletal: No signs and/or symptoms reported regarding the musculoskeletal system. 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 - Social history:: Smoking status: Patient denies any tobacco usage or history of. Patient/guardian denies using alcohol. - Family history:: not pertinent. - Hospitalizations: : No recent hospitalization is reported. Screenin:51 Abuse screen: Denies threats or abuse. Denies injuries from another. Nutritional ld1 screening: No deficits noted. Tuberculosis screening: No symptoms or risk factors identified. Fall Risk None identified. Assessment: 23:51 Reassessment: See triage assessment. ld1 03/18 00:47 Reassessment: No changes from previously documented assessment. Patient and/or family ll3 updated on plan of care and expected duration. Pain level reassessed. Patient is alert, oriented x 3, equal unlabored respirations, skin warm/dry/pink. 02:07 Reassessment: No changes from previously documented assessment. Patient and/or family ll3 updated on plan of care and expected duration. Pain level reassessed. Patient is alert, oriented x 3, equal unlabored respirations, skin warm/dry/pink. Vital Signs: 03/17 23:11 BP 153 / 96; Pulse 99; Resp 18; Temp 97.2(TE); Pulse Ox 99% on R/A; Weight 61.69 kg; ld1 Height 5 ft. 7 in. (170.18 cm); Pain 9/10; 23:51 BP 146 / 86; Pulse 84; Resp 18; Pulse Ox 100% on R/A; ld1 0707 00:47 BP 150 / 96; Pulse 102; Resp 18; Pulse Ox 100% on R/A; ll3 02:07 BP 157 / 97; Pulse 91; Resp 17; Pulse Ox 96% on R/A; ll3 03/17 23:11 Body Mass Index 21.30 (61.69 kg, 170.18 cm) ld1 ED Course: 03/17 23:01 Patient arrived in ED. mr 23:03 Cachorro Hanks MD is Attending Physician. rn 23:12 Triage completed. ld1 23:12 Arm band placed on right wrist. ld1 23:49 Inserted saline lock: 20 gauge in left forearm, using aseptic technique. Blood ld1 collected. 23:51 Mary Najera, BENJY is Primary Nurse. ld1 23:51 Patient has correct armband on for positive identification. Placed in gown. Bed in low ld1 position. Call light in reach. Side rails up X2. student services director on. Pulse ox on. NIBP on. Door closed. Noise minimized. Warm blanket given. 23:51 No provider procedures requiring assistance completed. ld1 03/18 01:25 CT Abd/Pelvis - IV Contrast Only In Process Unspecified. EDMS 03:24 IV discontinued, intact, bleeding controlled, No redness/swelling at site. Pressure ll3 dressing applied. Administered Medications: 03/17 23:48 Drug: morphine 4 mg Route: IVP; Infused Over: 4 mins; Site: left forearm; ld1 03/18 03:24 Follow up: Response: No adverse reaction ll3 03/17 23:48 Drug: Zofran (Ondansetron) 4 mg Route: IVP; Site: left forearm; ld1 03/18 03:23 Follow up: Response: No adverse reaction ll3 03/17 23:48 Drug: SOLU-Medrol (methylPrednisoLONE) 125 mg Route: IVP; Site: left forearm; ld1 03/18 03:23 Follow up: Response: No adverse reaction ll3 03/17 23:48 Drug: NS 0.9% 1000 ml Route: IV; Rate: 1000 ml; Site: left forearm; ld1 03/18 03:23 Follow up: Response: No adverse reaction; IV Status: Completed infusion; IV Intake: ll3 1000ml 03/17 23:48 Drug: Benadryl (diphenhydrAMINE) 25 mg Route: IVP; Site: left forearm; ld1 03/18 03:23 Follow up: Response: No adverse reaction ll3 00:47 Drug: morphine 4 mg Route: IVP; Infused Over: 4 mins; Site: left antecubital; ll3 03:23 Follow up: Response: No adverse reaction ll3 00:47 Drug: Benadryl (diphenhydrAMINE) 25 mg Route: IVP; Site: left antecubital; ll3 03:23 Follow up: Response: No adverse reaction ll3 03:19 Drug: morphine 4 mg Route: IVP; Infused Over: 4 mins; Site: left forearm; ll3 03:24 Follow up: Response: No adverse reaction; Medication administered at discharge. ll3 Medication: 03/17 23:51 VIS not applicable for this client. ld1 Intake: 03/18 03:23 IV: 1000ml; Total: 1000ml. ll3 Outcome: 03:10 Discharge ordered by . rn 03:24 Discharged to home ambulatory, with significant other. ll3 03:24 Condition: stable 03:24 Discharge instructions given to patient, significant other, Instructed on discharge instructions, follow up and referral plans. medication usage, Demonstrated understanding of instructions, follow-up care, medications, Prescriptions given X 3. 03:25 Patient left the ED. ll3 Signatures: Dispatcher [employer] [facility] Lizzie Brooke Roman, MD MD rn Dibbern, Lauren, RN RN ld1 Stoney Jackson RN RN ll3
[2022-03-18 03:36] VITALS: TEMP 97.2
[2022-03-18 03:55] VITALS: BP 157/97; O2SAT 96
--- NOTE | 2022-03-18 14:29 | RAD REPORT ---
EXAM DESCRIPTION: CT - Abdomen Pelvis W Contrast - 03/18/2022 5:56 am CLINICAL HISTORY: 46 years, Female, Abdominal pain, acute, nonlocalized COMPARISON: 03/31/2017. TECHNIQUE: Contrast-enhanced images of the abdomen and pelvis were performed utilizing 5 mm slice th ickness at 5 mm interval reconstruction mm interval reconstruction from the lung bases to the ischial tuberosities after the administration of IV contrast. In addition multiplanar reformats in the coronal and sagittal plane were obtained and reviewed. This exam was performed according to our departmental dose-optimization protocol, which includes auto mated exposure control, adjustment of the mA and/or kV according to patient size and/or use of iterat ariana reconstruction technique. FINDINGS: The lung bases demonstrate minimal dependent atelectatic changes. The liver, gallbladder, pancreas, spleen and adrenal glands demonstrate to be unremarkable, no focal lesions are noted. The kidneys demonstrate normal uptake of contrast media. No evidence for nephrolithiasis and/or hydro nephrosis. Grossly the unopacified stomach, small bowel and large bowel demonstrate to be within normal limits. There is no evidence for bowel dilatation and/or free air. There is very minimal diverticulosis wit hin the sigmoid colon. The appendix was not visualized although no significant inflammatory changes a re seen within the right lower quadrant. The urinary bladder demonstrate to be unremarkable. The uterus is absent. There are no adnexal mass es. The aorta demonstrate to be normal. There is no retroperitoneal lymphadenopathy. There is no ascites. The rest of the soft tissue and bony structures are within normal limits. IMPRESSION: No acute intra-abdominal process. Status post hysterectomy. Minimal diverticulosis without evidence for acute diverticulitis. Electronically signed by: Inderjit Rosario MD 03/18/2022 3:01 AM CDT Due to temporary technical issues with the PACS/Fluency reporting system, reports are being signed by the in house radiologist without review as a courtesy to ensure prompt reporting. The interpreting r adiologist is fully responsible for the content of the report.
== END 2022-03-18 03:25 | disposition home or self-care (01) ==
LOC: ER 22:57
DX: K50.90 Crohn's disease, unspecified, without complications (principal); Z88.5 Allergy status to narcotic agent; Z88.8 Allergy status to other drugs, medicaments and biological substances
CPT/HCPCS: 85025; 36415; 83690; 80053; 74177; Q9967; J1200 ×2; J7030; J2930; J2405

== ENCOUNTER 2022-03-21 13:26 | Emergency (ER) | payer OTHER ==
[2022-03-21] MEDS ORDERED: DIPHENHYDRAMINE 50 MG/ML VIAL ONE ×2 (13:57→15:30)
[2022-03-21] MEDS ORDERED: MORPHINE 4 MG/ML SYR ONE ×3 (13:57→16:13)
[2022-03-21] MEDS ORDERED: dexAMETHasone 10 MG/ML VIAL ONE (13:57)
[2022-03-21] MEDS ORDERED: NA CHLORIDE 0.9% 1,000 ML ONE (13:58)
[2022-03-21] MEDS ORDERED: ONDANSETRON 4 MG/2 ML VIAL ONE ×2 (13:58→15:31)
[2022-03-21 15:08] LABS: Absolute Lymphocytes (CBC) 3.3 K/uL (0.7-4.9); Hematocrit 40.9 % (36.0-45.0); Lymphocytes % 23.9 % (15.3-44.8); MCV 90.3 fL (80-100); MPV 6.5 fL (7.6-11.3); RBC Red Blood Cell Count 4.53 M/uL (3.86-4.86)
[2022-03-21 15:19] LABS: Albumin 3.5 g/dL (3.4-5.0); Bilirubin Total 0.4 mg/dL (0.2-1.0); Potassium 3.5 mmol/L (3.5-5.1); Protein, Total 7.1 g/dL (6.4-8.2)
--- NOTE | 2022-03-21 15:48 | ER ---
Nurse's Notes [facility] Name: Marisela Benedict Age: 46 yrs Sex: Female : 1975 Arrival Date: 03/21/2022 Time: 13:27 Bed Treatment Private MD: Diagnosis: Crohn's disease, unspecified, without complications Presentation: 03/21 13:32 Chief complaint: Patient states: was here a few days ago for Crohns flare up , is here from out of town and is having another flare up, is due to see her regular doctor next week. Coronavirus screen: At this time, the client does not indicate any symptoms associated with coronavirus-19. Ebola Screen: Patient negative for fever greater than or equal to 101.5 degrees Fahrenheit, and additional compatible Ebola Virus Disease symptoms Patient denies exposure to infectious person. Patient denies travel to an Ebola-affected area in the 21 days before illness onset. No symptoms or risks identified at this time. Initial Sepsis Screen: Does the patient meet any 2 criteria? No. Patient's initial sepsis screen is negative. Does the patient have a suspected source of infection? No. Patient's initial sepsis screen is negative. Risk Assessment: Do you want to hurt yourself or someone else? Patient reports no desire to harm self or others. Onset of symptoms was March 21, 2022. 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 - Social history:: Smoking status: Smoking status: Patient denies any tobacco usage or history of. Patient/guardian denies using alcohol. Screenin:29 Abuse screen: Denies threats or abuse. Denies injuries from another. Nutritional eh3 screening: No deficits noted. Tuberculosis screening: No symptoms or risk factors identified. Fall Risk None identified. Assessment: 14:23 Pain: Complains of pain in abdomen Pain does not radiate. Pain currently is 8 out of 10 eh3 on a pain scale. Quality of pain is described as aching, crampy, Pain began 2-3 days ago. Is intermittent, Alleviated by medications, rest, repositioning, Aggravated by eating, Noted to be guarding, Also complains of nausea. 14:29 Pain: Also complains of. eh3 14:30 General: Appears in no apparent distress. comfortable, Behavior is calm, cooperative, eh3 appropriate for age. Neuro: Level of Consciousness is awake, alert, Oriented to person, place, time, situation. 15:21 Cardiovascular: Capillary refill < 3 seconds Patient's skin is warm and dry. eh3 Respiratory: Airway is patent Respiratory effort is even, unlabored. GI: Reports lower abdominal pain, cramping, diarrhea, nausea, vomiting. : No signs and/or symptoms were reported regarding the genitourinary system. EENT: No signs and/or symptoms were reported regarding the EENT system. Derm: Rash noted that is itchy, red. Musculoskeletal: No signs and/or symptoms reported regarding the musculoskeletal system. 16:19 Reassessment: Patient appears in no apparent distress at this time. Patient and/or jb4 family updated on plan of care and expected duration. Pain level reassessed. Patient is alert, oriented x 3, equal unlabored respirations, skin warm/dry/pink. Vital Signs: 13:34 BP 164 / 110; Pulse 103; Resp 18; Pulse Ox 100% on R/A; iw 15:20 BP 160 / 95; Pulse 95; Resp 18; Pulse Ox 100% on R/A; eh3 16:20 BP 156 / 95; Pulse 100; Resp 16; Pulse Ox 100% on R/A; jb4 ED Course: 13:27 Patient arrived in ED. as 13:31 Ira Gamboa FNP-C is PHCP. kb 13:31 Cachorro Hanks MD is Attending Physician. kb 13:33 Triage completed. iw 13:34 Arm band placed on. iw 14:29 No apparent distress. eh3 14:29 Patient has correct armband on for positive identification. Allergy band placed. Bed in eh3 low position. Call light in reach. Side rails up X2. 14:29 No provider procedures requiring assistance completed. eh3 15:10 CBC with Diff Sent. eh3 15:10 CMP Sent. eh3 15:10 Lipase Sent. eh3 16:19 IV discontinued, intact, bleeding controlled, No redness/swelling at site. Pressure jb4 dressing applied. Administered Medications: 15:09 Drug: Benadryl (diphenhydrAMINE) 12.5 mg Route: IVP; Site: right upper arm; eh3 15:10 Drug: NS 0.9% 1000 ml Route: IV; Rate: 1 bolus; Site: right upper arm; eh3 15:10 Drug: Zofran (Ondansetron) 4 mg Route: IVP; Site: right upper arm; eh3 15:10 Drug: morphine 4 mg Route: IVP; Infused Over: 4 mins; Site: right upper arm; eh3 15:10 Drug: Decadron - Dexamethasone 10 mg Route: IVP; Site: right upper arm; eh3 15:37 Drug: Benadryl (diphenhydrAMINE) 25 mg Route: IVP; Site: right upper arm; eh3 15:37 Drug: morphine 4 mg Route: IVP; Infused Over: 4 mins; Site: right upper arm; eh3 15:37 Drug: Zofran (Ondansetron) 4 mg Route: IVP; Site: right upper arm; eh3 16:08 Drug: morphine 4 mg Route: IVP; Infused Over: 4 mins; Site: right antecubital; jb4 16:19 Follow up: Response: No adverse reaction; Marked relief of symptoms; Pain is decreased jb4 Medication: 14:29 VIS not applicable for this client. 3 Outcome: 15:48 Discharge ordered by . kb 16:19 Discharged to home ambulatory. jb4 16:19 Condition: stable 16:19 Discharge instructions given to patient, Instructed on discharge instructions, follow up and referral plans. Demonstrated understanding of instructions, follow-up care. 16:20 Patient left the ED. jb4 Signatures: Ira Gamboa, POPPY RESTREPO-Vicki Chauhan Irene, RN RN iw Bryson, James, RN RN jb4 Phuong Cadet 3 Corrections: (The following items were deleted from the chart) 13:34 13:34 BP 164 / 110; iw iw
--- NOTE | 2022-03-21 15:49 | EDPHYS ---
Physician Documentation [facility] Name: Marisela Benedict Age: 46 yrs Sex: Female : 1975 Arrival Date: 03/21/2022 Time: 13:27 Bed Treatment Private MD: ED Physician Cachorro Hanks HPI: 03/21 13:58 This 46 yrs old Female presents to ER via Ambulatory with complaints of crohns flare. kb 13:58 The patient presents with abdominal pain that is diffuse. Onset: The symptoms/episode kb began/occurred yesterday. The symptoms do not radiate. Associated signs and symptoms: Pertinent positives: diarrhea, nausea. The symptoms are described as constant. Modifying factors: The symptoms are alleviated by nothing, the symptoms are aggravated by pressure. Severity of pain: At its worst the pain was moderate in the emergency department the pain is unchanged. The patient has experienced similar episodes in the past, chronically. The patient has been recently seen at the [facility] Emergency Department. Pt reports she is having a Crohn's flare up. States she was seen a couple of days ago and given a treatment that made her feel much better, but her symptoms came back yesterday. States she is here visiting so she called her GI and was able to make an appt for the day she gets back home, but they told her to come back and get the same treatment with the exception of using decadron instead of solumedrol. States the pain is exactly the same as previous exacerbations. . 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 - Social history:: Smoking status: Smoking status: Patient denies any tobacco usage or history of. Patient/guardian denies using alcohol. ROS: 13:56 Constitutional: Negative for fever, chills, and weight loss. kb 13:56 Abdomen/GI: Positive for abdominal pain, nausea, diarrhea. 13:56 All other systems are negative. 14:01 Skin: Positive for rash. kb Exam: 13:56 Constitutional: This is a well developed, well nourished patient who is awake, alert, kb and in no acute distress. Head/Face: Normocephalic, atraumatic. ENT: Moist Mucous membranes Cardiovascular: Regular rate and rhythm with a normal S1 and S2. No gallops, murmurs, or rubs. No pulse deficits. Respiratory: Respirations even and unlabored. No increased work of breathing. Talking in full sentences MS/ Extremity: Pulses equal, no cyanosis. Neurovascular intact. Full, normal range of motion. Neuro: Awake and alert, GCS 15, oriented to person, place, time, and situation. Moves all extremities. Normal gait. Psych: Awake, alert, with orientation to person, place and time. Behavior, mood, and affect are within normal limits. 13:56 Abdomen/GI: Inspection: abdomen appears normal, Bowel sounds: normal, in all quadrants, Palpation: soft, in all quadrants, mild abdominal tenderness, in all quadrants. 14:01 Skin: rash can be described as macular, and is diffusely located, pt reports this is kb chronic, but starts to itch when the crohns flares. Vital Signs: 13:34 BP 164 / 110; Pulse 103; Resp 18; Pulse Ox 100% on R/A; iw 15:20 BP 160 / 95; Pulse 95; Resp 18; Pulse Ox 100% on R/A; eh3 16:20 BP 156 / 95; Pulse 100; Resp 16; Pulse Ox 100% on R/A; jb4 MDM: 13:31 Patient medically screened. kb 13:56 Data reviewed: vital signs, nurses notes. Data interpreted: Pulse oximetry: on room air kb is 100 %. Interpretation: normal. 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 ED course: Symptoms have improved, WBC decreased from previous visit, pt has follow up with GI scheduled for this week. Will discharge home to follow up outpatient. 03/21 13:39 Order name: CBC with Diff; Complete Time: 15:13 kb 07/10 13:39 Order name: CMP; Complete Time: 15:21 kb 03/21 13:39 Order name: Lipase; Complete Time: 15:21 kb 03/21 13:39 Order name: IV Saline Lock; Complete Time: 15:10 kb 03/21 13:39 Order name: Labs collected and sent; Complete Time: 15:10 kb Administered Medications: 15:09 Drug: Benadryl (diphenhydrAMINE) 12.5 mg Route: IVP; Site: right upper arm; eh3 15:10 Drug: NS 0.9% 1000 ml Route: IV; Rate: 1 bolus; Site: right upper arm; eh3 15:10 Drug: Zofran (Ondansetron) 4 mg Route: IVP; Site: right upper arm; eh3 15:10 Drug: morphine 4 mg Route: IVP; Infused Over: 4 mins; Site: right upper arm; eh3 15:10 Drug: Decadron - Dexamethasone 10 mg Route: IVP; Site: right upper arm; eh3 15:37 Drug: Benadryl (diphenhydrAMINE) 25 mg Route: IVP; Site: right upper arm; eh3 15:37 Drug: morphine 4 mg Route: IVP; Infused Over: 4 mins; Site: right upper arm; eh3 15:37 Drug: Zofran (Ondansetron) 4 mg Route: IVP; Site: right upper arm; eh3 16:08 Drug: morphine 4 mg Route: IVP; Infused Over: 4 mins; Site: right antecubital; jb4 16:19 Follow up: Response: No adverse reaction; Marked relief of symptoms; Pain is decreased jb4 Disposition: 18:28 Co-signature as Attending Physician, Cachorro Hanks MD. rn Disposition Summary: 03/21/22 15:48 Discharge Ordered Location: Home kb Condition: Stable kb Diagnosis - Crohn's disease, unspecified, without complications kb Followup: kb - With: Emergency Department - When: As needed - Reason: Worsening of condition Followup: kb - With: Private Physician - When: 2 - 3 days - Reason: Recheck today's complaints, Continuance of care, Re-evaluation by your physician Discharge Instructions: - Discharge Summary Sheet kb - Crohn's Disease kb Forms: - Medication Reconciliation Form kb - Thank You Letter kb - Antibiotic Education kb - Prescription Opioid Use kb Signatures: Dispatcher [employer] EDMS Ira Gamboa, AGILE QA TESTER-C AGILE QA TESTER-Ckb Yoli Evans, Cachorro Land RN, MD MD rn Bryson, James, RN RN jb4 Puhong Cadet 3 Corrections: (The following items were deleted from the chart) 14:02 13:56 Constitutional: This is a well developed, well nourished patient who is awake, kb alert, and in no acute distress. Head/Face: Normocephalic, atraumatic. ENT: Moist Mucous membranes Cardiovascular: Regular rate and rhythm with a normal S1 and S2. No gallops, murmurs, or rubs. No pulse deficits. Respiratory: Respirations even and unlabored. No increased work of breathing. Talking in full sentences Skin: Warm, dry with normal turgor. Normal color. MS/ Extremity: Pulses equal, no cyanosis. Neurovascular intact. Full, normal range of motion. Neuro: Awake and alert, GCS 15, oriented to person, place, time, and situation. Moves all extremities. Normal gait. Psych: Awake, alert, with orientation to person, place and time. Behavior, mood, and affect are within normal limits. kb
[2022-03-21 16:44] VITALS: O2SAT 100
[2022-03-21 16:51] VITALS: BP 156/95
== END 2022-03-21 16:20 | disposition home or self-care (01) ==
LOC: ER 13:26
DX: K50.90 Crohn's disease, unspecified, without complications (principal); R21 Rash and other nonspecific skin eruption; Z88.5 Allergy status to narcotic agent; Z88.8 Allergy status to other drugs, medicaments and biological substances
CPT/HCPCS: 85025; 36415; 83690; 80053; J1200 ×2; J1100; J7030; J2405 ×2; 99283